=== PATIENT | female | born 1995 | race Caucasian/White ===

== ENCOUNTER 2022-05-30 11:44 | Emergency (ER) | payer OTHER, SELFPAY ==
[2022-05-30 12:07] VITALS: BP 136/88; PULSE 121; RESP 18; TEMP 36; O2SAT 99
--- NOTE | 2022-05-30 12:08 | ED.URI ---
HPI - URI/Sore Throat General Chief Complaint: Upper Respiratory Infection Stated Complaint: Sore Throat Time Seen by Provider: 05/30/22 12:05 Source: patient Mode of arrival: ambulatory Limitations: no limitations History of Present Illness HPI Narrative: Patient is a 27-year-old female presents with ulcers in mouth, sore throat, fever since Tuesday states she has taken Tylenol for pain and fever with no relief. States it hurts to eat and swallow due to the sores in her mouth. Reports sore started in 1 spot and have spread throughout her mouth. States her throat does not hurt to swallow but it hurts to his touch on the outside. Denies any rashes throughout the body. Denies any changes in voice, still able to tolerate secretions. Related Data Allergies Allergy/AdvReac Type Severity Reaction Status Date / Time No Known Allergies Allergy Verified 05/30/22 12:06 Review of Systems Review of Systems: All systems reviewed & are unremarkable except as noted in HPI and below Constitutional: Constitutional: Denies body ache(s), Reports fatigue, Reports fever(s), Denies headache(s), Reports malaise and Denies weakness Eyes: Eyes: Denies loss of vision ENT: Denies otalgia, Denies headache(s), Reports mouth lesions, Reports mouth pain, Reports nasal congestion, Denies sinus pain and Reports sore throat Cardiovascular: Cardiovascular: Denies chest pain, Denies irregular heart rhythm and Denies dyspnea Respiratory: Respiratory: Reports cough and Denies dyspnea Gastrointestinal: Gastrointestinal: Denies abdominal pain, Denies melena, Denies hematochezia, Denies diarrhea, Denies nausea and Denies vomiting Musculoskeletal: Musculoskeletal: Denies back pain, Denies myalgias and Denies arthralgias Integumentary/Breasts: Skin/Breast: Denies pruritus and Denies rash Neurologic: Denies headache(s), Denies loss of vision and Denies weakness Psychiatric: Psychiatric: Reports no additional psychiatric complaints [facility] Family History Family History Mother Hypertension Social History Social History Smoking status: Never smoker Alcohol intake: never Comments At time of signature, agree with nursing past medical, surgical, social and family history. There is no relevant family history pertinent to the presenting complaint. Exam Const: General: cooperative, healthy appearing, comfortable, no acute distress and well nourished Nutritional Appearance: well nourished Orientation/consciousness: patient oriented x3 Limitations: no limitations HENMT: Head: normal to inspection, normocephalic and atraumatic Ears: external ears normal and TM's normal bilaterally Face/Nose/Sinus: Normal external nose present, normal facial exam, sinuses nontender and face symmetric Face and sinus: normal facial exam, sinuses nontender and face symmetric Mouth: Yes lip normal, Yes moist mucous membranes, Yes moist mucous membranes abnormal (Multiple white circular lesions to cheeks and internal corner of mouth) and Yes Abnormal oral and palatal mucosa present ulceration of the left buccal mucosa and of the right buccal mucosa and white patches Teeth and gingiva: dentition normal Throat: uvula midline, abnormal tonsil bilateral erythema and hypertrophy 2+ and posterior oropharynx abnormal erythema Eyes: General: appearance normal, both eyes and all related structures Alignment and Position: alignment normal and position normal Periorbital: periorbital findings normal Eyelids: eyelids normal Pupils: Equal, round and reactive pupils present Neck: Neck: normal visual inspection, full ROM and supple Chest: Chest palpation & inspection: normal inspection of the chest and normal palpation of entire chest wall Resp: Effort & Inspection: normal respiratory effort and able to speak in complete sentences Auscultation: clear to auscultation bilaterally,
== END 2022-05-30 13:08 | disposition home or self-care (01) ==
PROVIDERS: Emergency Provider Nurse Practitioner Family; PCP Emergency Medicine
DX: J06.9 Acute upper respiratory infection, unspecified (principal); L98.499 Non-pressure chronic ulcer of skin of other sites with unspecified severity; Z20.822 Contact with and (suspected) exposure to COVID-19
CPT/HCPCS: 36416; 86308; 87081; 87426; 87804; 87880; 99213; C9803; G0463

== ENCOUNTER 2022-05-31 00:05 | Emergency (ER) | payer OTHER, SELFPAY ==
[2022-05-31 00:07] VITALS: BP 145/69; PULSE 123; RESP 20; TEMP 36.4; O2SAT 100
[2022-05-31 00:28] VITALS: BP 142/93; PULSE 113; RESP 21; TEMP 37.7; O2SAT 100
[2022-05-31] MEDS: SODIUM CHLORIDE 0.9% IV 1,000 ML 999 ML IV CONT (01:37)
[2022-05-31 01:45] VITALS: BP 143/82; PULSE 97; RESP 14; O2SAT 99
[2022-05-31 01:59] LABS: Basophils Percent Auto 0.4 % (0.2-1.2); Hematocrit 43.5 % (37.0-47.0); Hemoglobin 14.5 g/dL (12.0-15.0); Immature Granulocyte Absolute 0.03 K/mm3 (0.00-0.031); Immature Granulocyte Percent A 0.4 % (0-0.5); Lymphocytes Absolute Auto 1.02 K/mm3 (0.9-3.2); Lymphocytes Percent Auto 12.2 % (18.3-44.2); Mean Corpuscular HGB Conc 33.3 g/dl (32-36); Mean Corpuscular Hemoglobin 28.7 pg (26-34); Mean Corpuscular Volume 86.1 fl (80-100); Mean Platelet Volume 9.7 fl (7.4-10.4); Monocytes Percent Auto 11.5 % (2.6-8.5); Neutrophils Absolute Auto 6.3 K/mm3 (1.3-6.7); Neutrophils Percent Auto 75.5 % (45.5-73.1); Platelet Count Result 302 k/mm3 (150-375); Red Blood Count 5.05 M/mm3 (4.2-5.4); Red Cell Distribution Width 12.7 % (11.5-14.5); White Blood Count 8.3 K/mm3 (4.5-10.0)
[2022-05-31 02:05] LABS: Lactic Acid Reflex 0.8 mmol/L (0.7-2.0)
[2022-05-31 02:06] LABS: Alanine Aminotransferase 15 U/L (6-35); Alkaline Phosphatase 65 U/L (38-126); Anion Gap 8 mmol/L (8-16); Aspartate Amino Transferase 26 U/L (14-36); Bilirubin,Total 0.4 mg/dL (0.2-1.3); Blood Urea Nitrogen 13 mg/dL (7-17); Calcium 9.4 mg/dL (8.4-10.2); Carbon Dioxide 29 mmol/L (22-30); Chloride 100 mmol/L (98-107); Estimated CRCL calculation 92 ml/min; Estimated Glomerular Filt Rate > 60; Glucose 104 mg/dL (65-110); Potassium 3.7 mmol/L (3.4-5.0); Sodium 137 mmol/L (137-145)
[2022-05-31 02:19] LABS: Strep Group A RT-PCR NOT DETECTED (Negative)
[2022-05-31 02:28] LABS: Monoscreen Negative (Negative); Negative Monotest Control Negative (Negative); Positive Monotest Control Positive (Positive)
[2022-05-31 02:29] LABS: Influenza A QL RT-PCR Negative (Negative); Influenza B QL RT-PCR Negative (Negative); SARS-CoV-2 RNA PCR Negative
[2022-05-31 02:43] VITALS: BP 119/63; PULSE 86; RESP 16; O2SAT 99
--- NOTE | 2022-05-31 02:47 | ED.GENADULT ---
HPI - General Adult General Chief complaint: Dental/Oral Stated complaint: sores in mouth, jaw and throat closing Time Seen by Provider: 05/31/22 00:45 History of Present Illness HPI narrative: Patient a 27-year-old female who presents the emergency department with chief complaint of mouth pain. Patient reports she was seen in urgent care and diagnosed with stomatitis patient reports she was given Magic mouthwash and has continued to have symptoms reports it hurts whenever she eats and reports has not really been able to eat or drink much. Patient reports that symptoms not improved by anything patient reports she was strep negative and COVID-negative at the urgent care and also negative for mono. Related Data Allergies Allergy/AdvReac Type Severity Reaction Status Date / Time No Known Allergies Allergy Verified 05/30/22 12:06 Review of Systems Review of Systems: A 10 system review of systems was completed on the patient and is negative except for what is stated in the HPI. Nursing and ancillary documentation was reviewed. PMFSH Family History Family History Mother Hypertension Social History Social History Smoking status: Never smoker Alcohol intake: never Exam Narrative: GENERAL: Well-appearing, well-nourished, and in no acute distress. HEAD: Normocephalic, atraumatic. EYES: PERRLA and EOMI. ENT: Nares clear, no rhinorrhea or epistaxis. Dry mucous membranes, multiple ulcerative lesions in the mouth. NECK: Supple. CHEST: Clear to auscultation. No respiratory distress. HEART: Regular rate and rhythm. No murmur heard. Normal peripheral pulses. ABDOMEN: Soft, nontender, nondistended, normal active bowel sounds. EXTREMITIES: Normal range of motion. No edema. SKIN: Warm, dry, no rash. NEURO: No focal deficits. Alert and oriented x3. PSYCH: Normal mood and affect. Course Vital Signs Vital signs: Vital Signs Temperature 36.4 C 05/31/22 00:07 Pulse Rate 123 H 05/31/22 00:07 Respiratory Rate 20 05/31/22 00:07 Blood Pressure 145/69 H 05/31/22 00:07 Pulse Oximetry 100 05/31/22 00:07 Oxygen Delivery Room Air 05/31/22 00:07 Temperature 37.7 C H 05/31/22 00:28 Pulse Rate 97 05/31/22 01:45 Respiratory Rate 14 05/31/22 01:45 Blood Pressure 143/82 H 05/31/22 01:45 Pulse Oximetry 99 05/31/22 01:45 Oxygen Delivery Room Air 05/31/22 00:07 Medical Decision Making MDM Narrative Medical decision making narrative: Differential diagnosis includes strep pharyngitis, mono, stomatitis, upper respiratory infection Patient was hydrated and given IV steroids in the emergency department Laboratory studies were obtained which showed a normal CBC electrolytes were within normal limits lactate is 0.8 liver enzymes are within normal limits flu COVID and strep and mono were negative Vital Signs Vital Signs: Vital Signs Temperature 36.4 C 05/31/22 00:07 Pulse Rate 123 H 05/31/22 00:07 Respiratory Rate 20 05/31/22 00:07 Blood Pressure 145/69 H 05/31/22 00:07 Pulse Oximetry 100 05/31/22 00:07 Oxygen Delivery Room Air 05/31/22 00:07 Temperature 37.7 C H 05/31/22 00:28 Pulse Rate 97 05/31/22 01:45 Respiratory Rate 14 05/31/22 01:45 Blood Pressure 143/82 H 05/31/22 01:45 Pulse Oximetry 99 05/31/22 01:45 Oxygen Delivery Room Air 05/31/22 00:07 Lab Data 05/31/22 01:27 05/31/22 01:27 Labs: Lab Results 05/31/22 05/31/22 05/31/22 Range/Units 01:27 01:27 01:27 WBC 8.3 (4.5-10.0) K/mm3 RBC 5.05 (4.2-5.4) M/mm3 Hgb 14.5 (12.0-15.0) g/dL Hct 43.5 (37.0-47.0) % MCV 86.1 (80-100) fl MCH 28.7 (26-34) pg MCHC 33.3 (32-36) g/dl RDW 12.7 (11.5-14.5) % Plt Count 302 (150-375) k/mm3 MPV 9.7 (7.4-10.4) fl Immature Gran % (Auto) 0.4 (0-0.5) %
== END 2022-05-31 03:13 | disposition home or self-care (01) ==
PROVIDERS: Emergency Provider Emergency Medicine; PCP Emergency Medicine
DX: K12.1 Other forms of stomatitis (principal); Z20.822 Contact with and (suspected) exposure to COVID-19
CPT/HCPCS: 36415; 80053; 83605; 85025; 86308; 87040; 87636; 87651; 96365; 96375; 99284; J0131; J1100; J7030

== ENCOUNTER 2022-06-01 09:06 | Emergency (ER) | payer OTHER, SELFPAY ==
[2022-06-01 09:07] VITALS: BP 144/82; PULSE 131; RESP 16; TEMP 36.6; O2SAT 99
[2022-06-01 09:44] LABS: Basophils Percent Auto 0.3 % (0.2-1.2); Hematocrit 45.6 % (37.0-47.0); Hemoglobin 15.2 g/dL (12.0-15.0); Immature Granulocyte Absolute 0.08 K/mm3 (0.00-0.031); Immature Granulocyte Percent A 0.6 % (0-0.5); Lymphocytes Absolute Auto 1.86 K/mm3 (0.9-3.2); Lymphocytes Percent Auto 13.4 % (18.3-44.2); Mean Corpuscular HGB Conc 33.3 g/dl (32-36); Mean Corpuscular Hemoglobin 28.9 pg (26-34); Mean Corpuscular Volume 86.7 fl (80-100); Mean Platelet Volume 9.4 fl (7.4-10.4); Monocytes Absolute Auto 1.2 K/mm3 (0.1-0.6); Monocytes Percent Auto 8.4 % (2.6-8.5); Neutrophils Absolute Auto 10.7 K/mm3 (1.3-6.7); Neutrophils Percent Auto 77.3 % (45.5-73.1); Platelet Count Result 400 k/mm3 (150-375); Red Blood Count 5.26 M/mm3 (4.2-5.4); Red Cell Distribution Width 12.7 % (11.5-14.5); White Blood Count 13.8 K/mm3 (4.5-10.0)
[2022-06-01 09:49] LABS: Alanine Aminotransferase 22 U/L (6-35); Albumin Level 5.1 g/dL (3.5-5.1); Alkaline Phosphatase 65 U/L (38-126); Anion Gap 16 mmol/L (8-16); Aspartate Amino Transferase 26 U/L (14-36); Bilirubin,Total 0.5 mg/dL (0.2-1.3); Blood Urea Nitrogen 20 mg/dL (7-17); Carbon Dioxide 26 mmol/L (22-30); Chloride 100 mmol/L (98-107); Estimated CRCL calculation 92 ml/min; Estimated Glomerular Filt Rate > 60; Glucose 113 mg/dL (65-110); Lipase 70 U/L (23-300); Potassium 4.1 mmol/L (3.4-5.0); Sodium 142 mmol/L (137-145)
[2022-06-01 10:49] LABS: Appearance Urine Turbid (Clear); Bacteria Urine 1+ /hpf; Bilirubin Urine Negative (Negative); Blood Urine Negative (Negative); Color Urine Yellow (Yellow); Glucose Urine UA Negative (Negative); Ketones Urine Trace mg/dL (Negative); Leukocyte Esterase Ur 1+ LEU/UL (Negative); Need Manual Microscopic Reviewed; Nitrate Urine Negative (Negative); Protein Urine 2+ mg/dL (Negative); Specific Grav Ur 1.035 (1.001-1.035); Squamous Epithelial Cell Urine Many /hpf (Few); Urobilinogen Urine 0.2 mg/dL (<2.0); WBC Urine 51-100 /hpf; pH Urine 5.5 (5.0-9.0)
[2022-06-01 11:01] LABS: Add Urine Microscopic? YES
--- NOTE | 2022-06-01 12:55 | ED.GENADULT ---
HPI - General Adult General Chief complaint: Dental/Oral Stated complaint: sores in her mouth (second visit) Time Seen by Provider: 06/01/22 12:34 History of Present Illness HPI narrative: 27-year-old female presenting to the ED for evaluation of persistent mouth sores. Patient was recently diagnosed with dermatosis and was started on prednisone and provided Magic mouthwash. Patient states that she is having decreased p.o. intake and still having mouth pain. Patient states she has been taking the prednisone as directed. Patient does report some nausea and vomiting this morning and does have decreased p.o. intake due to the sore mouth. Patient was negative for mono, COVID and for strep. Related Data Allergies Allergy/AdvReac Type Severity Reaction Status Date / Time No Known Allergies Allergy Verified 05/30/22 12:06 Review of Systems Review of Systems: CONSTITUTIONAL: Denies fever, chills, or sweats. EYES: Denies visual changes, redness, or discharge. ENT: See HPI CARDIOVASCULAR: Denies chest pain, palpitations, or edema. RESPIRATORY: Denies cough or dyspnea. GASTROINTESTINAL: Denies abdominal pain, nausea, vomiting, or diarrhea. GENITOURINARY: Denies dysuria or hematuria. SKIN: Denies rash or itching. MUSCULOSKELETAL: Denies back pain, joint pain, or myalgia. NEUROLOGIC: Denies headache, numbness, or weakness. PSYCHIATRIC: Denies anxiety or depression. [facility] Family History Family History Mother Hypertension Social History Social History Smoking status: Never smoker Alcohol intake: never Exam Narrative: APPEARANCE: Well appearing, no pain, no distress, well-nourished. HEAD: normocephalic, atraumatic. EYES: PERRLA/EOMI, conjunctivae clear. NOSE: Normal no drainage EARS:TMS clear with good light reflex. Mouth and throat: Sores on soft palate, tongue, lips. No active bleeding. NECK: Supple. No adenopathy, no masses. RESPIRATORY: Airway patent, respirations nonlabored. Clear to auscultation bilaterally, no rales, rhonchi, wheezing. CARDIOVASCULAR: Regular rate and rhythm without murmurs rubs or gallops. ABDOMINAL: Soft, nontender, nondistended, normal bowel sounds MUSCULOSKELETAL: Moves all extremities. Strength/ROM intact, No edema, No calf tenderness. NEURO: Alert. Cranial nerves II through XII intact. Grossly intact SKIN: Warm, dry. Normal Color Course Course Emergency Course: On arrival to the ED patient's heart rate was elevated. Patient was treated with IV fluids. Baseline labs were checked. Patient was provided medications for pain control. Patient and family were updated on the plan for pain control. Patient did feel improved with treatment. Patient is afebrile with a leukocytosis of 13.8 but patient is on prednisone. Patient denied any urinary symptoms, urine showed high squamous cells, urine culture was ordered. Vital Signs Vital signs: Vital Signs Temperature 97.9 F 06/01/22 09:07 Pulse Rate 131 H 06/01/22 09:07 Respiratory Rate 16 06/01/22 09:07 Blood Pressure 144/82 H 06/01/22 09:07 Pulse Oximetry 99 06/01/22 09:07 Oxygen Delivery Room Air 06/01/22 09:07 Temperature 97.9 F 06/01/22 09:07 Pulse Rate 76 06/01/22 13:46 Respiratory Rate 18 06/01/22 13:46 Blood Pressure 132/83 06/01/22 13:46 Pulse Oximetry 99 06/01/22 13:46 Oxygen Delivery Room Air 06/01/22 09:07 Medical Decision Making Vital Signs Vital Signs: Vital Signs Temperature 97.9 F 06/01/22 09:07 Pulse Rate 131 H 06/01/22 09:07 Respiratory Rate 16 06/01/22 09:07 Blood Pressure 144/82 H 06/01/22 09:07 Pulse Oximetry 99 06/01/22 09:07 Oxygen Delivery Room Air 06/01/22 09:07 Temperature 97.9 F 06/01/22 09:07 Pulse Rate 76 06/01/22 13:46 Respiratory Rate 18 06/01/22 13:46 Blood Pressure 132/83 06/01/22 13:46 Pulse Oximetry 99
[2022-06-01] MEDS: SODIUM CHLORIDE 0.9% IV 1,000 ML 999 ML IV CONT ×2 (13:05→13:06)
[2022-06-01] MEDS: ONDANSETRON INJ 4 MG/2 ML VIAL IV PUSH (13:06)
[2022-06-01] MEDS: HYDROmorphone HCL INJ (*CRX) 1 MG/ML SYR 0.5 MG IV PUSH (13:06)
[2022-06-01 13:25] VITALS: BP 138/94; PULSE 81; RESP 18; O2SAT 100
[2022-06-01 13:46] VITALS: BP 132/83; PULSE 76; RESP 18; O2SAT 99
== END 2022-06-01 14:40 | disposition home or self-care (01) ==
PROVIDERS: Emergency Medicine; Emergency Provider Emergency Medicine; PCP Family Medicine
DX: K12.1 Other forms of stomatitis (principal); R82.998 Other abnormal findings in urine
CPT/HCPCS: 36415; 80053; 81001; 83690; 85025; 87086; 87088; 96361; 96374; 96375; 99284; J1170; J2405; J7030